=== PATIENT | male | born 1960 | race Caucasian/White ===

== ENCOUNTER 2020-10-16 07:51 | Day surgery (SDC) | payer OTHER ==
[2020-10-09 15:14] LABS: BASOPHILS # (AUTO) 0.1 X10'3 (0-0.2); BASOPHILS % (AUTO) 0.5 % (0-1); EOSINOPHILS # (AUTO) 0.2 X10'3 (0-0.9); EOSINOPHILS % (AUTO) 1.6 % (0-6); LYMPHOCYTES # (AUTO) 1.8 X10'3 (1.1-4.8); LYMPHOCYTES % (AUTO) 18.4 % (21-51); MEAN CORPUSCULAR HEMOGLOBIN 31.7 PG (27.0-31.0); MEAN CORPUSCULAR HGB CONC 33.7 g/dL (33.0-36.5); MEAN CORPUSCULAR VOLUME 94.2 FL (78-98); MEAN PLATELET VOLUME 9.7 FL (7.4-10.4); MONOCYTES % (AUTO) 10.5 % (2-12); NEUTROPHILS # (AUTO) 6.7 X10'3 (1.8-7.7); PRE OP HEMATOCRIT 50.3 % (42.0-52.0); PRE OP HEMOGLOBIN 16.9 g/dL (14.0-17.9); PRE OP PLATELET COUNT 200 X10'3 (140-440); RED BLOOD COUNT 5.33 X10'6 (4.70-6.10)
[2020-10-09 15:26] LABS: ALBUMIN 3.9 G/DL (3.4-5.0); ALBUMIN/GLOBULIN RATIO 1.1 (1.1-1.5); ALKALINE PHOSPHATASE 74 IU/L (46-116); BLOOD UREA NITROGEN 26 MG/DL (7-18); BUN/CREATININE RATIO 27.7 (5.4-32.0); CALCIUM 9.4 MG/DL (8.5-10.1); CHLORIDE 104 MMOL/L (99-107); CREATININE 0.94 MG/DL (0.60-1.10); PRE OP ALT 50 U/L (30-65); PRE OP ANION GAP 4 (8-16); PRE OP AST 35 U/L (10-37); PRE OP BILIRUB, TOTAL 0.6 MG/DL (0.0-1.0); PRE OP GLUCOSE 81 MG/DL (70-104); PRE OP POTASSIUM 3.7 MMOL/L (3.4-5.1); PRE OP SODIUM 139 MMOL/L (135-145); TOTAL CARBON DIOXIDE 30.6 MMOL/L (24-32); TOTAL PROTEIN 7.6 G/DL (6.4-8.2); eGFR 82 ML/MIN
[2020-10-16] VITALS (12 sets, daily range): BP systolic 89–132; BP diastolic 62–80
[~2020-10-16] VITALS: Ht 180.3 cm; Wt 88.9 kg
[~2020-10-16 07:51] MED LIST: ASPI-1265 PO; BUPIVACAINE liposomal/PF 13.3 MG/ML vial IM ONE; BUPIVAcaine/PF 2.5 mg/ml (0.25%) 30ml vial ONE; BUPIVAcaine/PF 2.5mg/ml (0.25%) 10ml vial ONE; Cefazolin 2GM/100ML NS IVPB 100 ML IV ONE; Cefazolin 2GM/100ML NS IVPB 50 ML IV ONE; DOCUMENT DATE & TIME OF BETA-BLOCKER PO ONE; LIDOcaine 1% 30ml preserv. free vial ONE; METO25TA6 PO; ROSU40TA22 PO; TEST200V10 IM; cefazolin/dext.iso 2gm/50ml 50 ML IV ONE; famotidine 20mg tablet PO ONE; meperidine/PF 25mg/ml syringe IV PRN; morphine 2 MG/ML inj. syringe IV PRN; morphine 4 MG/ML inj SYRINge IV PRN; ondansetron/PF 4mg/2ml inj IV PRN; proCHLORperazine 10 MG/2 ml inj IV PRN; ringers solution, lacted 1,000 ML IV SCH
[2020-10-16] MEDS ORDERED: neostigmine methylsulfate 1 MG/ML 10ml vial ONE (09:52)
[2020-10-16] MEDS ORDERED: glycopyrrolate 0.2mg/ml inj ONE (09:52)
[2020-10-16] MEDS ORDERED: sevoflurane 250ml liquid IH ONE (09:52)
[2020-10-16] MEDS ORDERED: dexamethasone sod phosphate 10mg/ml inj ONE (09:52)
[2020-10-16] MEDS ORDERED: fentaNYL/PF 50MCG/1 ML 2ML syringe ONE (10:00)
[2020-10-16] MEDS ORDERED: midazolam 2 mg/2 ml injection ONE (10:00)
[2020-10-16] MEDS ORDERED: meperidine/PF 25mg/ml syringe ONE (10:10)
[2020-10-16] MEDS ORDERED: rocuronium 10mg/ml inj IV ONE (10:10)
[2020-10-16] MEDS ORDERED: propofol inj 20 ML IV ONE (10:10)
[2020-10-16] MEDS ORDERED: ondansetron/PF 4mg/2ml inj ONE (10:16)
[2020-10-16] MEDS ORDERED: acetaminophen 1,000mg/100ml IV 100 ML IV ONE (10:28)
--- NOTE | 2020-10-16 11:25 | NUR ---
Received from OR via BED , accompanied by Anesthesiologist DR SOLIS and report given by Anesthesiolgist. PATIENT WAKING UP, DENIES PAIN, V/S WNL, NEUROVASCULAR CHECKS INTACT, 20G PIV LUE, SCD ON, BANDAIDS TO LAP SIGHTS OF ABDOMEN CDI.
[2020-10-16] MEDS ORDERED: HYDROcodone/acetaminophen 10/325mg tab PO PRN (11:30)
[2020-10-16] MEDS ORDERED: HYDROcodone/acetaminophen 5mg/325mg tablet PO PRN (11:30)
--- NOTE | 2020-10-16 12:45 | NUR ---
PATIENT A&OX4, DENIES PAIN, V/S WNL, NEUROVASCULAR CHECKS INTACT, 20G PIV LUE D/C, SCD OFF, BANDAIDS TO LAP SIGHTS OF ABDOMEN CDI. PATIENT HAS VOIDED. I HAVE REVIEWED D/C INSTRUCTIONS WITH PATIENT AND FAMILY HAVE VERBALIZED UNDERSTANDING.PATIENT WAS D/C HOME WITH ALL BELONGINGS AND FAMILY GAVE TRANSPORT HOME.
== END 2020-10-16 12:45 | disposition home or self-care (01) ==
LOC: PAS 07:51
PROVIDERS: ATTEND Surgery
DX: K40.90 Unilateral inguinal hernia, without obstruction or gangrene, not specified as recurrent (principal); K42.9 Umbilical hernia without obstruction or gangrene; K45.8 Other specified abdominal hernia without obstruction or gangrene; K41.90 Unilateral femoral hernia, without obstruction or gangrene, not specified as recurrent; Z20.822 Contact with and (suspected) exposure to COVID-19; E78.00 Pure hypercholesterolemia, unspecified; I10 Essential (primary) hypertension; Z79.82 Long term (current) use of aspirin; Z98.890 Other specified postprocedural states; Z79.899 Other long term (current) drug therapy
CPT/HCPCS: 36415; 49585; 49650; 80053; 85025; 87426; 87635; 93005; C1781; C9290; J0131; J1100; J2001; J2175; J2250; J2405; J2704; J2710; J3010; J3490; J7120; S2900; A4215; A4618; J0690